=== PATIENT | male | born 1985 | race Two or more races ===

== ENCOUNTER → 2019-01-15 | Outpatient (CLI) | payer OTHER ==
--- NOTE | 2019-01-15 16:57 | RADIOLOGY REPORT (SQ) ---
EXAM DESCRIPTION: U/S NON-OB PELVIS LTD W/O DOP COMPLETED DATE/TIME: 01/15/2019 4:21 pm REASON FOR STUDY: K46.9 UNSPECIFIED ABDOMINAL HERNIA WITHOUT OBSTRUCTION OR GANGRENE K46.9 UNSPECIF IED ABDOMINAL HERNIA WITHOUT OBSTRUCTION OR GA COMPARISON: None. TECHNIQUE: Dynamic and static grayscale images acquired of the pelvis via transabdominal approach an d recorded on PACS. Additional selected color Doppler and spectral images recorded. LIMITATIONS: None. FINDINGS: Scanning of the right lower quadrant shows heterogeneous area peristalsing bowel that move s with Valsalva. IMPRESSION: Possible hernia with bowel that shows peristalsis. Consider CT. TECHNICAL DOCUMENTATION: JOB ID: [id number] [employer]- All Rights Reserved Rev Reading location - IP/workstation name: [email or web address]
== END ==
LOC: RAD 15:48
PROVIDERS: ATTEND Nurse Practitioner Family
DX: K46.9 Unspecified abdominal hernia without obstruction or gangrene (principal); R10.2 Pelvic and perineal pain
CPT/HCPCS: 76857